=== PATIENT | male | born 1980 | race Caucasian/White ===

== ENCOUNTER 2018-10-12 21:53 | Emergency (ER) | payer OTHER ==
[2018-10-21 18:06] LABS: eGFR (Non-African) > 60
[2018-10-21 18:07] LABS: BASOPHILS % 0.4 % (0.0-1.5); NEUTROPHILS # 4.7 # k/uL (1.4-7.7)
--- NOTE | 2018-12-12 08:26 | Diagnostic Imaging Report ---
CELESTE ROSAS ED [facility] [address] [facility] [address] [place], [place]. [address] Report Submission Date: Oct 12, 2018 10:56:44 PM CDT Patient Study Name: DUNCAN WREN Date: Oct 12, 2018 10:41:34 PM CDT Modality Type: CT\SR Gender: M Description: HEAD W/O : 80 Institution: [facility] Physician: CELESTE ROSAS ED CT brain noncontrast Date of study: 10/12/2018. CLINICAL HISTORY: SYNCOPAL EPISODE TONIGHT TECHNIQUE: 5 mm contiguous axial images of the brain, noncontrast with sagittal and coronal multiplanar reconstructions. FINDINGS: There is no evidence of intracranial mass effect, hemorrhage, or acute infarct. The lateral ventricles are symmetrical and the 4th ventricle is midline without shift. No acute brain parenchymal changes or extra-axial fluid collections are identified. The posterior fossa contents are within normal limits. The calvarium is intact. The visualized sinuses and mastoid air cells are clear. IMPRESSION: No acute intracranial process. Electronically signed on Oct 12, 2018 10:56:44 PM CDT by: Arvin VENTURA
== END 2018-10-12 23:19 ==
LOC: ED 21:53
DX: R55 Syncope and collapse (principal)
CPT/HCPCS: 36415; 70450; 80053; 82550; 82553; 84484; 85025; 99282; 99283; S1016